=== PATIENT | female | born 1940 | race Caucasian/White ===

== ENCOUNTER → 2019-04-05 | Outpatient (CLI) | payer MEDICARE ==
[~2019-04-05] MED LIST: AMOX500C2 PO; ASP325T PO; IBUP800T26 PO; MELO-195 PO; NAPR-243; NF-TYLARTH PO; OMEP20CA6 PO; OMEP20TA2 PO; PANT20TA2 PO; TRAM-21 PO
[2019-04-05 11:04] LABS: BASOPHILS % (AUTO) 0 % (0-10); EOSINOPHILS % (AUTO) 0 % (0-10); HEMATOCRIT 45 % (35-52); HEMOGLOBIN 14.7 G/DL (11.5-16.0); LYMPHOCYTES # (AUTO) 0.7 X 10^3 (1.0-4.0); LYMPHOCYTES % (AUTO) 27 % (12-44); MEAN CORPUSCULAR HEMOGLOBIN 28 PG (25-34); MEAN CORPUSCULAR HGB CONC 33 G/DL (32-36); MEAN CORPUSCULAR VOLUME 87 FL (80-99); MEAN PLATELET VOLUME 12.1 FL (7.4-10.4); MONOCYTES # (AUTO) 0.3 X 10^3 (0.0-1.0); MONOCYTES % (AUTO) 12 % (0-12); NEUTROPHILS # (AUTO) 1.6 X 10^3 (1.8-7.8); NEUTROPHILS % (AUTO) 61 % (42-75); PLATELET COUNT 132 10^3/uL (130-400); WHITE BLOOD COUNT 2.5 10^3/uL (4.3-11.0)
[2019-04-05 11:10] LABS: BILIRUBIN,URINE NEGATIVE (NEGATIVE); CLARITY,URINE CLEAR; COLOR,URINE YELLOW; GLUCOSE, URINE (UA) NEGATIVE (NEGATIVE); KETONES,URINE 3+ (NEGATIVE); LEUKOCYTE ESTERASE ,URINE 2+ (NEGATIVE); NITRITE,URINE NEGATIVE (NEGATIVE); PH,URINE 5 (5-9); PROTEIN,URINE 2+ (NEGATIVE); UROBILINOGEN,URINE NORMAL (NORMAL)
[2019-04-05 11:22] LABS: ALANINE AMINOTRANSFERASE 23 U/L (0-55); ALBUMIN 4.3 GM/DL (3.2-4.5); ALKALINE PHOSPHATASE 72 U/L (40-136); BILIRUBIN,TOTAL 0.3 MG/DL (0.1-1.0); BUN/CREATININE RATIO 10; CALCIUM 9.5 MG/DL (8.5-10.1); CARBON DIOXIDE 26 MMOL/L (21-32); CHLORIDE 100 MMOL/L (98-107); CREATINE KINASE 177 U/L (29-168); GFR ESTIMATED 48; GLUCOSE 104 MG/DL (70-105); POTASSIUM 4.2 MMOL/L (3.6-5.0); SODIUM 139 MMOL/L (135-145); TOTAL PROTEIN 7.5 GM/DL (6.4-8.2)
[2019-04-05 11:31] LABS: BACTERIA,URINE MODERATE /HPF; SQUAMOUS EPITHELIAL CELL,UR 25-50 /HPF
--- NOTE | 2019-04-05 12:57 | Diagnostic Imaging Report ---
INDICATION: Neck pain. COMPARISON: None. FINDINGS: Frontal, lateral, and open-mouth radiographic views of the cervical spine were obtained. Evaluation of static alignment shows slight reversal of normal lordotic curvature. There is slight grade I anterolisthesis of C3-C4 and C4-C5, as well as slight grade I retrolisthesis at C6-C7. There is no evidence of jumped facets. Open-mouth view shows normal C1-C2 relationship. Vertebral body heights are maintained. There is no evidence of acute fracture. There are moderate multilevel degenerative changes greatest at the C4-C5 through C6-C7 levels. This consists of intervertebral disc height loss with anterior and posterior disc osteophyte complex formations as well as multilevel facet arthropathy. Surrounding soft tissue structures are unremarkable. Included portions of the lung apices are clear. IMPRESSION: 1. No acute fracture or dislocation of the cervical spine. 2. Moderate multilevel degenerative changes. Dictated by: Dictated on workstation # [id number]
--- NOTE | 2019-04-05 18:43 | Diagnostic Imaging Report ---
EXAMINATION: Thoracic spine at 11:21 a.m. INDICATION: Back pain. FINDINGS: AP, lateral, and swimmer's views were obtained. There are no prior thoracic spine examinations available for comparison. The lateral view does show kyphosis of the thoracic spine. There is also degenerative disc and bony disease involving the mid and lower thoracic spine. There is no fracture or acute bony abnormality noted. There is no sign of a paraspinal mass. IMPRESSION: 1. There is no evidence for an acute bony abnormality. 2. If clinical concern regarding an underlying abnormality persists, then MRI will be recommended for further study. Dictated by: Dictated on workstation # [id number]
== END ==
LOC: CARD 10:38
PROVIDERS: ATTEND Nurse Practitioner Family
DX: D50.9 Iron deficiency anemia, unspecified (principal); M47.812 Spondylosis without myelopathy or radiculopathy, cervical region; M54.6 Pain in thoracic spine; R07.9 Chest pain, unspecified; Z86.73 Personal history of transient ischemic attack (TIA), and cerebral infarction without residual deficits
CPT/HCPCS: 36415; 72040; 72072; 80053; 81000; 82550; 83540; 84443; 84484; 85025; 85652; 87088; 93005

== ENCOUNTER 2019-04-13 13:58 | Emergency (ER) | payer MEDICARE ==
[~2019-04-13] VITALS: Ht 162.6 cm; Wt 60.8 kg
--- NOTE | 2019-04-13 14:09 | ED General ---
General Chief Complaint: General Problems/Pain Stated Complaint: GENERAL WEAKNESS/SOA Nursing Triage Note: T TO [facility] 6 [facility] WITH C/O FATIGUE/DECREASED APPETITE X 2 WEEKS AND SOB X 2 HOURS. O2 98% ON RA UPON ARRIVAL. PT DENIES ANY CHEST PAIN, N/V, FEVER/CHILLS AT THIS TIME. A&O X4. DENIES ANY PAIN. Nursing Sepsis Screen: No Definite Risk Source of Information: Patient Exam Limitations: No Limitations History of Present Illness Date Seen by Provider: Apr 13, 2019 Time Seen by Provider: 14:08 Initial Comments To ER with reports of fatigue, decreased appetite for 2 weeks and shortness of breath for 2 hours. No history of any of this. Otherwise healthy as far she knows primary primary care Dr. Radford. She was brought to ER by EMS, [place]. Timing/Duration: 1-2 Days Severity: Moderate Associated Systoms: Shortness of Air, Weakness Allergies and Home Medications Allergies Coded Allergies: iodine (Unverified Allergy, Mild, 08/10/09) meloxicam (Unverified Adverse Reaction, Unknown, 12/06/14) Uncoded Allergies: CODIENE (Allergy, Mild, 08/10/09) Home Medications Amoxicillin/Potassium Clav 1 Each Tablet, 1 EACH PO BID Prescribed by: YOCASTA EDWARD on 04/13/19 1630 Aspirin 325 Mg Tab, 81 MG PO DAILY, (Reported) Ibuprofen 800 Mg Tablet, 800 MG PO q8h PRN for PAIN, (Reported) Omeprazole 20 Mg Tablet.dr, 20 MG PO DAILY, (Reported) Patient Home Medication List Home Medication List Reviewed: Yes Review of Systems Review of Systems Constitutional: see HPI, weakness EENTM: see HPI Respiratory: see HPI; No cough; dyspnea on exertion, short of breath Cardiovascular: no symptoms reported Genitourinary: no symptoms reported Musculoskeletal: no symptoms reported Skin: no symptoms reported Psychiatric/Neurological: No Symptoms Reported Past Oahynpr-Kvmfzf-Fhrwpv Hx Patient Social History Recent Foreign Travel: No Contact w/Someone Who Travel: No Recent Infectious Disease Expo: No Immunizations Up To Date Date of Influenza Vaccine: Apr 22, 2014 Seasonal Allergies Seasonal Allergies: Yes Past Medical History Appendectomy, Gallbladder Atrial Fibrillation Stroke Reproductive Disorders: No Gastroesophageal Reflux Physical Exam Vital Signs Vital Signs - First Documented 04/13/19 14:03 Temp 98.3 Pulse 71 Resp 15 B/P (MAP) 124/73 (90) Pulse Ox 98 O2 Delivery Room Air Capillary Refill : Less Than 3 Seconds Height, Weight, BMI Height: 5'4.00" Weight: 134lbs. oz. 60.832270rm; BMI Method:Stated General Appearance: No Apparent Distress, WD/WN Eyes: Bilateral Eye Normal Inspection, Bilateral Eye PERRL, Bilateral Eye EOMI HEENT: PERRL/EOMI, TMs Normal Neck: Full Range of Motion, Normal Inspection Respiratory: No Accessory Muscle Use, No Respiratory Distress Cardiovascular: Regular Rate, Rhythm, Normal Peripheral Pulses Gastrointestinal: Non Tender, Soft Extremity: Normal Capillary Refill, Normal Inspection Neurologic/Psychiatric: Alert, Oriented x3 Skin: Normal Color, Warm/Dry Progress/Results/Core Measures Suspected Sepsis Recent Fever Within 48 Hours: No Infection Criteria Present: None New/Unexplained Altered Menta: No Sepsis Screen: No Definite Risk SIRS Temperature:98.3 Pulse: 71 Respiratory Rate: 15 Laboratory Tests 04/13/19 14:16: White Blood Count 6.9 Blood Pressure 138 /102 Mean: 114 Laboratory Tests 04/13/19 14:16: Creatinine 0.83, Platelet Count 179, Total Bilirubin 0.3 Results/Orders Lab Results Laboratory Tests Test 04/13/19 14:16 04/13/19 15:38 Range/Units White Blood Count 6.9 4.3-11.0 10^3/uL Red Blood Count 4.78 4.35-5.85 10^6/uL Hemoglobin 13.3 11.5-16.0 G/DL Hematocrit 41 35-52 % Mean Corpuscular Volume 85 80-99 FL Mean Corpuscular Hemoglobin 28 25-34 PG Mean Corpuscular Hemoglobin Concent 33 32-36 G/DL Red Cell Distribution Width 14.4 10.0-14.5 % Platelet Count 179 130-400 10^3/uL Mean Platelet Volume 11.8 H 7.4-10.4 FL Neutrophils (%) (Auto) 71 42-75 % Lymphocytes (%) (Auto) 20 12-44 % Monocytes (%) (Auto) 9 0-12 % Eosinophils (%) (Auto) 0 0-10 % Basophils (%) (Auto) 0 0-10 % Neutrophils # (Auto) 4.9 1.8-7.8 X 10^3 Lymphocytes # (Auto) 1.4 1.0-4.0 X 10^3 Monocytes # (Auto) 0.6 0.0-1.0 X 10^3 Eosinophils # (Auto) 0.0 0.0-0.3 10^3/uL Basophils # (Auto) 0.0 0.0-0.1 10^3/uL Sodium Level 139 135-145 MMOL/L Potassium Level 3.5 L 3.6-5.0 MMOL/L Chloride Level 106 98-107 MMOL/L Carbon Dioxide Level 26 21-32 MMOL/L Anion Gap 7 5-14 MMOL/L Blood Urea Nitrogen 13 7-18 MG/DL Creatinine 0.83 0.60-1.30 MG/DL Estimat Glomerular Filtration Rate > 60 BUN/Creatinine Ratio 16 Glucose Level 213 H 70-105 MG/DL Calcium Level 8.4 L 8.5-10.1 MG/DL Corrected Calcium 9.0 8.5-10.1 MG/DL Magnesium Level 2.0 1.6-2.4 MG/DL Total Bilirubin 0.3 0.1-1.0 MG/DL Aspartate Amino Transf (AST/SGOT) 20 5-34 U/L Alanine Aminotransferase (ALT/SGPT) 41 0-55 U/L Alkaline Phosphatase 61 40-136 U/L Troponin I < 0.028 <0.028 NG/ML B-Type Natriuretic Peptide 72.4 <100.0 PG/ML Total Protein 6.0 L 6.4-8.2 GM/DL Albumin 3.3 3.2-4.5 GM/DL Thyroid Stimulating Hormone (TSH) 2.14 0.35-4.94 UIU/ML Urine Color YELLOW Urine Clarity CLEAR Urine pH 7 5-9 Urine Specific [place] 1.010 L 1.016-1.022 Urine Protein NEGATIVE NEGATIVE Urine Glucose (UA) NEGATIVE NEGATIVE Urine Ketones NEGATIVE NEGATIVE Urine Nitrite NEGATIVE NEGATIVE Urine Bilirubin NEGATIVE NEGATIVE Urine Urobilinogen NORMAL NORMAL MG/DL Urine Leukocyte Esterase 2+ H NEGATIVE Urine RBC (Auto) NEGATIVE NEGATIVE Urine RBC NONE /HPF Urine WBC 2-5 /HPF Urine Crystals NONE /LPF Urine Bacteria TRACE /HPF Urine Casts NONE /LPF Urine Mucus NEGATIVE /LPF Urine Culture Indicated NO My Orders Orders - YOCASTA EDWARD APRN Cbc With Automated Diff (04/13/19 14:04) Comprehensive Metabolic Panel (04/13/19 14:04) Thyroid Stimulating Hormone (04/13/19 14:04) Troponin I (04/13/19 14:04) BNP (04/13/19 14:04) Ekg Tracing (04/13/19 14:04) Chest 1 View, Ap/Pa Only (04/13/19 14:04) Ed Iv/Invasive Line Start (04/13/19 14:04) Magnesium (04/13/19 14:04) Alprazolam Tablet (Xanax Tablet) (04/13/19 15:30) Ua Culture If Indicated (04/13/19 15:34) Tick Panel With Lyme Eia (04/13/19 15:35) Ct Abdomen/Pelvis Wo (04/13/19 ) Medications Given in ED Current Medications Medications Dose Ordered Sig/Luis Route Start Time Stop Time Status Last Admin Dose Admin Alprazolam 0.25 mg ONCE ONCE PO 04/13/19 15:30 04/13/19 15:31 DC 04/13/19 15:30 0.25 MG Vital Signs/I&O 04/13/19 14:03 Temp 98.3 Pulse 71 Resp 15 B/P (MAP) 124/73 (90) Pulse Ox 98 O2 Delivery Room Air Capillary Refill : Less Than 3 Seconds Blood Pressure Mean: 114 Diagnostic Imaging Diagonstic Imaging: CT Comments NAME: HUGH BYERS [facility] REC#: [id number] PT STATUS: REG ER : 1940 PHYSICIAN: YOCASTA EDWARD [employer] PSYCHOLOGIST ADMIT DATE: 04/13/19/ER Draft Date of Exam:04/13/19 CT ABDOMEN/PELVIS WO PROCEDURE: CT abdomen and pelvis without contrast. TECHNIQUE: Multiple contiguous axial images were obtained through the abdomen and pelvis without the use of intravenous contrast. Auto Exposure Controls were utilized during the CT exam to meet ALARA standards for radiation dose reduction. INDICATION: Weakness. COMPARISON: 01/15/2015. FINDINGS: There is sigmoid diverticulosis at the proximal third of the sigmoid. There is diverticular thickening and mild edema and infiltration of the perisigmoidal fat, subtle changes of active diverticulitis are suspected, correlate clinically. No extraluminal gas or findings of a transmural perforation were found. There is no abscess fluid collection or obstruction. Uterus, adnexa and urinary bladder appear nonacute and no evidence for bladder fistulization. There is no appendicitis. The urinary tracts are unobstructed. There is a punctate 2 mm nonobstructing stone in the left upper pole calyx. There is a moderate retrocardiac hiatal hernia. The gallbladder is absent. The liver, spleen, adrenals, pancreas all nonacute. The atherosclerotic aorta is nonaneurysmal. There is a nonobstructing lipoma associated with the junction descending and transverse duodenum, chronic. IMPRESSION: 1. Probable mild active acute sigmoid diverticulitis without obstruction or perforation. No abscess or drainable fluid collection or ascites. 2. Nonobstructing renal calculus, chronic hiatal hernia. Chronic duodenal lipoma, nonobstructing. 3. No other significant finding Dictated on workstation # [id number] Dict: 04/13/19 1611 Trans: 04/13/19 1624 [facility] [id number] Interpreted by: BIRDIE PERDUE Electronically signed by: Departure Communication (Admissions) She has had some pain in her neck radiating down the right arm. Also reports she pulled 3 ticks off of her last week. No appetite, doesn't want anything to eat or drink for about 2-3 weeks. She's also had constipation. Had normal thyroid test run last week at primary care. 1635-She feels less anxious, no longer short of breath. No abdominal pain. Granddaughter present, works in the lab here, would like to have the patient admitted. unfortunately do not have admission criteria here. She is able to walk to the bathroom, she is able to take oral antibiotics, there is no value to admitting and would in fact potentially be harmful by exposing her to other infectious diseases. Impression Primary Impression: Sigmoid diverticulitis Additional Impressions: General weakness Poor appetite Nausea Disposition: 01 HOME, SELF-CARE Condition: Stable Departure-Patient Inst. Decision time for Depature: 16:29 Referrals: MARGIE RADFORD MD (PCP/Family) Primary Care Physician Patient Instructions: Diverticulitis, Generalized Weakness Add. Discharge Instructions: 1. Return to ER for any concerns such as fevers or intolerable pain. Antibiotics as directed. Follow-up with Dr. RADFORD on Tuesday. All discharge instructions reviewed with patient and/or family. Voiced understanding. Scripts Amoxicillin/Potassium Clav (Augmentin 875-125 Tablet) 1 Each Tablet 1 EACH PO BID, #14 TAB 0 Refills Prov: YOCASTA EDWARD APRN 04/13/19 Copy Copies To 1: MARGIE RADFORD MD, PETER J APRN Apr 13, 2019 14:09
[2019-04-13 14:34] LABS: BASOPHILS % (AUTO) 0 % (0-10); EOSINOPHILS % (AUTO) 0 % (0-10); HEMATOCRIT 41 % (35-52); HEMOGLOBIN 13.3 G/DL (11.5-16.0); LYMPHOCYTES # (AUTO) 1.4 X 10^3 (1.0-4.0); LYMPHOCYTES % (AUTO) 20 % (12-44); MEAN CORPUSCULAR HEMOGLOBIN 28 PG (25-34); MEAN CORPUSCULAR HGB CONC 33 G/DL (32-36); MEAN CORPUSCULAR VOLUME 85 FL (80-99); MEAN PLATELET VOLUME 11.8 FL (7.4-10.4); MONOCYTES # (AUTO) 0.6 X 10^3 (0.0-1.0); MONOCYTES % (AUTO) 9 % (0-12); NEUTROPHILS # (AUTO) 4.9 X 10^3 (1.8-7.8); NEUTROPHILS % (AUTO) 71 % (42-75); PLATELET COUNT 179 10^3/uL (130-400); RED CELL DISTRIBUTION WIDTH 14.4 % (10.0-14.5); WHITE BLOOD COUNT 6.9 10^3/uL (4.3-11.0)
--- NOTE | 2019-04-13 14:45 | Diagnostic Imaging Report ---
EXAM: Portable erect AP chest at 2:27 p.m. INDICATION: Weakness and fatigue FINDINGS: The borderline cardiomegaly noted on the prior exam of 01/10/2019 is again evident and no different. The lungs remain clear. There is still no sign of failure, pneumonia or of pleural effusion. The mediastinum is not widened and are intact. IMPRESSION: There is no evidence of active disease. When compared to the prior study, there has been no adverse change. Dictated by: Dictated on workstation # [id number]
[2019-04-13 14:51] LABS: ALANINE AMINOTRANSFERASE 41 U/L (0-55); ALBUMIN 3.3 GM/DL (3.2-4.5); ALKALINE PHOSPHATASE 61 U/L (40-136); BILIRUBIN,TOTAL 0.3 MG/DL (0.1-1.0); BUN/CREATININE RATIO 16; CALCIUM 8.4 MG/DL (8.5-10.1); CARBON DIOXIDE 26 MMOL/L (21-32); CHLORIDE 106 MMOL/L (98-107); CREATININE SERUM 0.83 MG/DL (0.60-1.30); GFR ESTIMATED > 60; GLUCOSE 213 MG/DL (70-105); POTASSIUM 3.5 MMOL/L (3.6-5.0); SODIUM 139 MMOL/L (135-145)
[2019-04-13] MEDS ORDERED: ALPRAZolam 0.25 MG (XANAX) TAB PO ONE (15:30)
[2019-04-13 15:44] LABS: BILIRUBIN,URINE NEGATIVE (NEGATIVE); CLARITY,URINE CLEAR; COLOR,URINE YELLOW; GLUCOSE, URINE (UA) NEGATIVE (NEGATIVE); KETONES,URINE NEGATIVE (NEGATIVE); LEUKOCYTE ESTERASE ,URINE 2+ (NEGATIVE); NITRITE,URINE NEGATIVE (NEGATIVE); PH,URINE 7 (5-9); PROTEIN,URINE NEGATIVE (NEGATIVE); UROBILINOGEN,URINE NORMAL (NORMAL)
[2019-04-13 15:54] LABS: BACTERIA,URINE TRACE /HPF
--- NOTE | 2019-04-13 16:24 | Diagnostic Imaging Report ---
PROCEDURE: CT abdomen and pelvis without contrast. TECHNIQUE: Multiple contiguous axial images were obtained through the abdomen and pelvis without the use of intravenous contrast. Auto Exposure Controls were utilized during the CT exam to meet ALARA standards for radiation dose reduction. INDICATION: Weakness. COMPARISON: 01/15/2015. FINDINGS: There is sigmoid diverticulosis at the proximal third of the sigmoid. There is diverticular thickening and mild edema and infiltration of the perisigmoidal fat, subtle changes of active diverticulitis are suspected, correlate clinically. No extraluminal gas or findings of a transmural perforation were found. There is no abscess fluid collection or obstruction. Uterus, adnexa and urinary bladder appear nonacute and no evidence for bladder fistulization. There is no appendicitis. The urinary tracts are unobstructed. There is a punctate 2 mm nonobstructing stone in the left upper pole calyx. There is a moderate retrocardiac hiatal hernia. The gallbladder is absent. The liver, spleen, adrenals, pancreas all nonacute. The atherosclerotic aorta is nonaneurysmal. There is a nonobstructing lipoma associated with the junction descending and transverse duodenum, chronic. IMPRESSION: 1. Probable mild active acute sigmoid diverticulitis without obstruction or perforation. No abscess or drainable fluid collection or ascites. 2. Nonobstructing renal calculus, chronic hiatal hernia. Chronic duodenal lipoma, nonobstructing. 3. No other significant finding Dictated by: Dictated on workstation # [id number]
[2019-04-13] MEDS ORDERED: AMOX-358 PO (16:30)
[2019-04-13 16:47] VITALS: BP 131/73
== END 2019-04-13 16:47 | disposition home or self-care (01) ==
LOC: EDUNIT# 13:58 → ER 14:00
DX: K57.32 Diverticulitis of large intestine without perforation or abscess without bleeding (principal); R53.1 Weakness; R63.0 Anorexia; I48.91 Unspecified atrial fibrillation; K21.9 Gastro-esophageal reflux disease without esophagitis; Z88.8 Allergy status to other drugs, medicaments and biological substances; Z88.5 Allergy status to narcotic agent; Z88.6 Allergy status to analgesic agent; Z79.82 Long term (current) use of aspirin; Z90.49 Acquired absence of other specified parts of digestive tract; Z86.73 Personal history of transient ischemic attack (TIA), and cerebral infarction without residual deficits
CPT/HCPCS: 36415; 71045; 74176; 80053; 81000; 82607; 82746; 83735; 83880; 84425; 84443; 84484; 85025; 86618; 86666; 86668; 86757; 93005

== ENCOUNTER → 2021-09-14 | Outpatient (CLI) | payer MEDICARE ==
[~2021-09-14] MED LIST changes: +AMOX-358 PO
[2021-09-14 12:58] LABS: BASOPHILS # (AUTO) 0.1 10^3/uL (0.0-0.1); BASOPHILS % (AUTO) 1 % (0-10); EOSINOPHILS # (AUTO) 0.1 10^3/uL (0.0-0.3); EOSINOPHILS % (AUTO) 1 % (0-10); HEMATOCRIT 43 % (35-52); HEMOGLOBIN 13.6 g/dL (11.5-16.0); LYMPHOCYTES # (AUTO) 1.4 10^3/uL (1.0-4.0); LYMPHOCYTES % (AUTO) 19 % (12-44); MEAN CORPUSCULAR HEMOGLOBIN 29 pg (25-34); MEAN CORPUSCULAR HGB CONC 32 g/dL (32-36); MEAN CORPUSCULAR VOLUME 90 fL (80-99); MEAN PLATELET VOLUME 11.7 fL (9.0-12.2); MONOCYTES # (AUTO) 0.7 10^3/uL (0.0-1.0); MONOCYTES % (AUTO) 10 % (0-12); NEUTROPHILS # (AUTO) 4.8 10^3/uL (1.8-7.8); NEUTROPHILS % (AUTO) 68 % (42-75); PLATELET COUNT 239 10^3/uL (130-400); WHITE BLOOD COUNT 7.1 10^3/uL (4.3-11.0)
[2021-09-14 13:09] LABS: ALBUMIN 4.1 GM/DL (3.2-4.5); POTASSIUM 4.1 MMOL/L (3.6-5.0)
[2021-09-14 13:10] LABS: CALCIUM 9.7 MG/DL (8.5-10.1)
[2021-09-14 13:11] LABS: TOTAL PROTEIN 7.1 GM/DL (6.4-8.2)
[2021-09-14 13:13] LABS: BILIRUBIN,TOTAL 0.4 MG/DL (0.1-1.0)
[2021-09-14 13:15] LABS: CREATININE SERUM 1.28 MG/DL (0.60-1.30)
== END ==
LOC: LAB 12:33
PROVIDERS: ATTEND Family Medicine
DX: C44.91 Basal cell carcinoma of skin, unspecified (principal); I48.91 Unspecified atrial fibrillation
CPT/HCPCS: 36415; 80053; 80061; 84443; 85025

== ENCOUNTER → 2022-09-27 | Outpatient (CLI) | payer MEDICARE ==
--- NOTE | 2022-09-27 17:01 | Diagnostic Imaging Report ---
INDICATION: Fracture. COMPARISON: I do not have priors despite provided history of known fracture six weeks ago. FINDINGS: There is an L2 vertebral body fracture with about 50% stature loss. Stature loss is greatest at its mid anterior third. No definite retropulsion. There is some sclerosis about the healing fracture. The remaining statures are normal. There is no listhesis. There are degenerative changes to the discs, endplates, and facets, chronic. IMPRESSION: Healing fracture at the L2 vertebral body with about 50% stature loss and no apparent retropulsion or listhesis. Dictated by: Dictated on workstation # [id number]
== END ==
LOC: RAD 10:21
PROVIDERS: ATTEND Family Medicine Geriatric Medicine
DX: S32.029A Unspecified fracture of second lumbar vertebra, initial encounter for closed fracture (principal); I48.0 Paroxysmal atrial fibrillation; X58.XXXA Exposure to other specified factors, initial encounter
CPT/HCPCS: 72100

== ENCOUNTER → 2022-10-05 | Outpatient (CLI) | payer MEDICARE ==
--- NOTE | 2022-10-05 10:34 | Diagnostic Imaging Report ---
INDICATION: Postmenopausal state COMPARISON: None available FINDINGS: AP Spine L1-L4: [BMD (g/cm2): 1.013] [T-Score: -1.6] [Z-Score: 0.4] [BMD Previous: NA] [BMD % Change: NA] LT Hip Neck: [BMD (g/cm2): 0.727] [T-Score: -2.2] [Z-Score: 0.1] LT Hip Total: [BMD (g/cm2):0.763] [T-Score:-1.9] [Z-Score: 0.3] [BMD Previous: NA] [BMD % Change: NA] RT Hip Neck: [BMD (g/cm2):0.762] [T-Score:-2.0] [Z-Score:0.4] RT Hip Total: [BMD (g/cm2):0.749] [T-score:-2.1] [Z-Score:0.2] [BMD Previous:NA] [BMD % Change:NA] *Indicates significant change from prior examination based on 95% confidence level. World Health Organization criteria for BMD interpretation classify patients as Normal (T-score at or above -1.0), Osteopenic (T-score between -1.0 and -2.5) or Osteoporotic (T-score at or below -2.5). LIMITATIONS AND MODIFICATION: None. FRACTURE RISK (FRAX SCORE): The ten year probability of (%): Major Osteoporotic Fracture: [23.7] Hip Fracture: [7.6] IMPRESSION: 1. Osteopenia (Low bone mass). 2. Baseline examination. 3. See below National Osteoporosis Foundation guidelines on when to potentially initiate pharmacologic therapy. Based on the National Osteoporosis Foundation Guidelines, pharmacologic treatment should be initiated in any of the following, unless clinical conditions suggest otherwise: * Any patient with prior fragility fracture of the hip or vertebrae. A spine fracture indicates 5X risk for subsequent spine fracture and 2X risk for subsequent hip fracture. * Osteoporosis (T-score <-2.5). * Postmenopausal women and men age 50 and older with low bone mass/osteopenia (T-score between -1.0 and -2.5) by DXA and 10-year major osteoporotic fracture greater than 20% or a 10-year probability of hip fracture greater than 3%. These fracture risks are supplied above in the FRAX score, if applicable. * Clinician judgement and/or patient preferences may indicate treatment for people with 10-year fracture probabilities above or below these levels. Dictated by: Dictated on workstation # [id number]
== END ==
LOC: RAD 08:47
PROVIDERS: ATTEND Family Medicine Geriatric Medicine
DX: M85.80 Other specified disorders of bone density and structure, unspecified site (principal); M54.51 Vertebrogenic low back pain; I48.0 Paroxysmal atrial fibrillation
CPT/HCPCS: 77080

== ENCOUNTER → 2023-03-07 | Outpatient (CLI) | payer MEDICARE ==
--- NOTE | 2023-03-07 13:38 | Diagnostic Imaging Report ---
INDICATION: Chronic knee pain, worse on left side than right. TECHNIQUE: 3 views of the bilateral knee CORRELATION STUDY: None FINDINGS: Mild medial compartment joint space narrowing slightly greater left knee compared to the right. There is a more prominent marginal osteophyte formation of the medial aspect of the left knee. Articular surfaces are smooth. No acute bony abnormality. No calcified intra-articular loose body. There is mild spur like formation superior and inferior pole of patella left greater than right. Additional minimally prominent osteophyte formation distal anterior right femur which accentuates space narrowing and irregularity patellofemoral compartment left. Right patellofemoral compartment appears better maintained. Mild scattered vascular calcification. No abnormal joint effusion. IMPRESSION: 1. Mildly advanced multiple degenerative changes of a both knees but is greater on the left compared to the right. Dictated by: Dictated on workstation # [id number]
== END ==
LOC: RAD 10:10
PROVIDERS: ATTEND Registered Nurse
DX: M17.0 Bilateral primary osteoarthritis of knee (principal)